=== PATIENT | female | born 2005 | race Caucasian/White ===

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

== ENCOUNTER 2025-01-16 18:25 | Emergency (ER) | payer SELFPAY ==
[2025-01-16 18:27] VITALS: BP 115/61; PULSE 85; RESP 20; TEMP 36.6; O2SAT 95; BMI 22.9
--- NOTE | 2025-01-16 18:27 | ED.GENADULT ---
HPI - General Adult General Chief complaint: Urogenital-Female Stated complaint: discomfort pelvic area Time Seen by Provider: 01/16/25 20:24 Source: patient Mode of arrival: ambulatory Limitations: no limitations History of Present Illness ED Provider: Dr. Diaz HPI narrative: This is a 19-year-old female presented hospital today for 4 days of lower pelvic pain. Patient stated that is itchy in nature she is having some ?cottage cheese ?discharged from the vaginal area. Denies any lateralized pelvic pain. Patient is sexually active does not use protection. No signs of vaginal bleeding. She kindly refuses syphilis and HIV testing. Related Data Previous Rx's ?Medication ?Instructions ?Recorded cephalexin 500 mg capsule 500 mg PO Q8H 7 days #21 caps 01/16/25 clotrimazole 2 % vaginal cream 1 appful vaginal BEDTIME 3 days 01/16/25 #21 grams doxycycline hyclate 100 mg capsule 100 mg PO BID 7 days #14 caps 01/16/25 Allergies Allergy/AdvReac Type Severity Reaction Status Date / Time No Known Allergies Allergy Verified 01/16/25 18:29 Review of Systems Review of Systems: Pertinent review of systems as mentioned in HPI. All other system otherwise negative. FOR[facility]LY [facility], [facility] Past Medical History [facility], [facility] Narrative: Medical history as mentioned in HPI Social History Social History Alcohol intake: current Alcohol intake frequency: holidays/special occasions only Smoked in Last 30 Days: Yes Substance Use Type: Marijuana Substance Use Frequency: Daily Advance Directives: No Advance Directives Information Provided: No Do you have a plan to hurt others: No Plan Physical Exam ED Exam Exam: General: Pleasant, no distress, interacting appropriately Head: Normacephalic, atraumatic ENT: oral mucosa moist, neck supple, no tracheal deviation : Cervix does not appear to be erythematous on exam, there is some white thick discharge in the vaginal vault. Neurological: Awake and alert, no facial droop noted Skin: Warm and dry Psychiatric: Appropriate mood and thoughts Vital Signs: Vital Signs - 24 hr 01/16/25 18:27 Temperature 98 F Pulse Rate 85 Respiratory Rate 20 Blood Pressure 115/61 Pulse Oximetry 95 Oxygen Delivery Method Room Air BMI result Body Mass Index 22.9 Course Course Course Narrative: This is a rapid medical exam performed by Vanda Florez NP: Additional HPI, ROS, PE not included below will be deferred to primary provider. Patient is a 19-year-old female presenting with complaint of vaginal irritation, using OTC cream which is not helping. Denies recent intercourse but has engaged in oral sex. Reports cottage cheese discharge. Plan: UA to start Medications Administered Discontinued Medications Generic Name Dose Route Start Last Admin Trade Name Jan PRN Reason Stop Dose Admin Ceftriaxone Sodium 500 mg/ 0 mg 01/16/25 20:49 01/16/25 22:14 Lidocaine HCl 1 ml IM 01/16/25 20:50 500 kit ONCE ONE Administration Doxycycline Monohydrate 100 mg 01/16/25 20:49 01/16/25 22:13 Doxycycline Monohydrate 100 Mg Capsule PO 01/16/25 20:50 100 mg ONCE ONE Administration Fluconazole 150 mg 01/16/25 20:50 01/16/25 22:14 Fluconazole 150 Mg Tablet PO 01/16/25 20:51 150 mg ONCE ONE Administration Lidocaine HCl 1 appl 01/16/25 21:52 01/16/25 22:38 Lidocaine Hcl 2 % Jelly 6 Ml Jel.Pf.[place] TOPICAL 01/16/25 21:53 1 appl ONCE ONE Administration Protocol Medical Decision Making Medical Decision Making MDM Narrative: 19 Year old female presented hospital today for evaluation of vaginal discharge and pelvic pain for past 4 days. We will plan to perform a pelvic exam on the patient. We will send off a wet prep for the patient. Urine will be sent for GC chlamydia testing. Patient does not want syphilis or HIV testing. IM ceftriaxone will be given the patient we will plan to give patient a dose of Diflucan p.o.. We will also plan to give patient a dose of doxycycline here. Patient is complaining of pruritus in the vaginal vault. On exam it does appear to be thick white discharge. I suspect this is vaginal yeast infection. Patient will get a dose of Diflucan here we will discharge patient with a vaginal clotrimazole to take. We will plan to treat patient for possible UTI as her urine did show signs of UTI. Keflex will be prescribed. Doxycycline will be sent off as well. For STD coverage. Discussed with the patient that lab will not be available in next couple of days we will plan to give her referral for primary care doctor. Differential Diagnosis Differential Diagnoses: The differential diagnosis associated with the presentation includes Yeast infection, gonorrhea, chlamydia, pelvic inflammatory disease Lab Data Labs: Lab Results 01/16/25 01/16/25 Range/Units 20:50 20:51 Urine Color Yellow Urine Appearance Clear Urine pH 6.5 (5.0-9.0) Ur Specific [place] <= 1.005 (1.005-1.025) Urine Protein Negative (Neg-Trace) mg/dL Urine Glucose (UA) Negative (Negative) mg/dL Urine Ketones Negative (Negative) mg/dL Urine Blood Negative (Negative) Urine Nitrite Negative (Negative) Ur Leukocyte Esterase Moderate (2+) H (Negative) Urine RBC 0-2 (0-2) /HPF Urine WBC 0-5 (0-5) /HPF Ur Squamous Epith Cells 3-5 (0-2) /HPF Urine Bacteria 1+ (None Seen) Hyaline Casts 0-2 (0-2) /LPF Urine Test NEGATIVE (NEGATIVE) Prescription Management I considered prescription management with: Antibiotic Discharge Plan Discharge Clinical Impression: Vaginal yeast infection Patient Disposition: Home, Self-Care Instructions: Yeast Infection (ED) Prescriptions: New doxycycline hyclate 100 mg capsule 100 mg PO BID 7 Days Qty: 14 0RF cephalexin 500 mg capsule 500 mg PO Q8H 7 Days Qty: 21 0RF clotrimazole 2 % cream 1 appful vaginal BEDTIME 3 Days Qty: 21 0RF Referrals: [facility] [Provider Group, Internal Medicine] Print Language: Portuguese
[2025-01-16 21:04] LABS: Appearance Urine Clear; Glucose Urine UA Negative (Negative); PH 6.5 (5.0-9.0); Specific Gravity - Urine <= 1.005 (1.005-1.025); UMIC TRIGGER UACC YES
[2025-01-16 21:06] LABS: UPreg QC Valid YES
[2025-01-16 21:15] LABS: UACC Culture Trigger YES
[2025-01-16] MEDS: cefTRIAXone sodium 500 MG, Lidocaine HCl 1 % MPF 1 ML IM (22:14)
[2025-01-16] MEDS: LIDOCAINE HCL 2% 1 APPL TOPICAL (22:38)
[2025-01-16 23:42] VITALS: BP 115/61; PULSE 85; RESP 20; TEMP 36.6; O2SAT 95
[2025-01-17 04:33] LABS: Bacterial Vaginosis PCR NEGATIVE (Negative); Candida Group PCR DETECTED (Not Detect); Candida glab krusei PCR NOT DETECTED (Not Detect); Trichomonas vaginalis PCR NOT DETECTED (Not Detect)
[2025-01-17 05:11] LABS: CT PCR Urine NOT DETECTED (Not Detect.); NG PCR Urine NOT DETECTED (Not Detect.)
== END 2025-01-16 23:18 | disposition home or self-care (01) ==
PROVIDERS: Registered Nurse Emergency; Emergency Provider Student in an Organized Health Care Education/Training Program
DX: B37.9 Candidiasis, unspecified (principal); R10.2 Pelvic and perineal pain
CPT/HCPCS: 81001; 81025; 81515; 87086; 87491; 87591; 96372; 99284; J0696; J2003

== ENCOUNTER 2025-02-06 17:12 | Emergency (ER) | payer MEDICAID, SELFPAY ==
[2025-02-06 17:35] VITALS: BP 134/72; PULSE 73; RESP 16; TEMP 36.6; O2SAT 100; BMI 22.7
--- NOTE | 2025-02-06 17:35 | ED.GENADULT ---
HPI - General Adult General Chief complaint: Urogenital-Female Stated complaint: personal Time Seen by Provider: 02/06/25 22:16 Source: patient Mode of arrival: ambulatory Limitations: no limitations History of Present Illness ED Provider: HPI narrative: Patient is a 19-year-old woman, representing for vaginal itching and whitish discharge, she states she was seen here at the end of December was given antibiotics however was not consistent with them, no concern for STI, here with partner, no nausea or vomiting no fevers or chills no vaginal bleeding. She states she did not have any concerns for STI but antibiotics prophylactically for gonorrhea and chlamydia as well as clotrimazole but as she mentioned she was not consistent with those. Related Data Previous Rx's ?Medication ?Instructions ?Recorded cephalexin 500 mg capsule 500 mg PO Q8H 7 days #21 caps 01/16/25 clotrimazole 2 % vaginal cream 1 appful vaginal BEDTIME 3 days 01/16/25 #21 grams doxycycline hyclate 100 mg capsule 100 mg PO BID 7 days #14 caps 01/16/25 fluconazole 150 mg tablet 150 mg PO Q3D 2 doses #2 tabs 02/06/25 Allergies Allergy/AdvReac Type Severity Reaction Status Date / Time No Known Allergies Allergy Verified 02/06/25 17:37 Review of Systems Constitutional: Constitutional: Reports as per HPI [facility] Social History Social History Alcohol intake: current Alcohol intake frequency: holidays/special occasions only Substance Use Type: Marijuana Advance Directives: No Advance Directives Information Provided: Yes Physical Exam ED Vital Signs: Vital Signs - 24 hr 02/06/25 17:35 Temperature 97.9 F Pulse Rate 73 Respiratory Rate 16 Blood Pressure 134/72 Pulse Oximetry 100 Oxygen Delivery Method Room Air BMI result Body Mass Index 22.7 Course Course Course Narrative: This is a Rapid Medical Examination (RME) performed by Edwin Molina PA-C in triage. Full HPI, ROS, assessment and treatment plan per primary provider in the Main ED. Hx: Patient is a 19 yo F who presents for ongoing symptoms consistent with a yeast infection. States that she was seen here on 01/16 treated prophylactically for gonorrhea, chlamydia, and yeast. she did not complete any medications given at discharge. Continues to endorse pain, irritation, itching, and abnormal discharge. Plan:further eval Medical Decision Making Medical Decision Making [facility] Narrative: 10:39 PM 02/06/2025 (Dr. August Forrester): Well-appearing woman presenting with continued report of whitish vaginal discharge, I reviewed her prior antibiotic coverage, she was given doxycycline and cephalexin for presumed STI and clotrimazole that she did not finish, she did test positive for candidiasis during her last visit, I will plan to treat with fluconazole, we will add on that was not done, she other states she is not a diabetic, this is not a recurrent issue for her but when this started she was not consistent with the treatment, and she has no other constitutional symptoms to suspect a sending infection such as tubo-ovarian abscess Differential Diagnosis Differential Diagnoses: The differential diagnosis associated with the presentation includes (BV, candidiasis, STI, , tubo-ovarian abscess, UTI) Lab Data [facility] Lab Attestation statement: I reviewed the patient's lab results. Labs: Lab Results 02/06/25 Range/Units 18:34 Urine Color Yellow Urine Appearance Clear Urine pH 7.5 (5.0-9.0) Ur Specific [place] <= 1.005 (1.005-1.025) Urine Protein Negative (Neg-Trace) mg/dL Urine Glucose (UA) Negative (Negative) mg/dL Urine Ketones Negative (Negative) mg/dL Urine Blood Negative (Negative) Urine Nitrite Negative (Negative) Ur Leukocyte Esterase Negative (Negative) Discharge Plan Discharge Clinical Impression: Vaginal yeast infection Patient Disposition: Home, Self-Care Instructions: Yeast Infection (ED) Additional Instructions: Take fluconazole 150 mg x 1, wait 72 hours and take another pill, during your last visit you were prescribed clotrimazole 2% cream if you still have some you can apply over the vaginal area before bedtime for the next 3 days along with fluconazole. Urinalysis was negative for infection Urine was sent for gonorrhea and chlamydia if it comes back positive will get a phone call During your last visit you did test positive for yeast infection Spiking fevers, flank pain/upper back pain, nausea, vomiting any other concerns come back to the ER Prescriptions: New fluconazole 150 mg tablet 150 mg PO Q3D Qty: 2 0RF No Action doxycycline hyclate 100 mg capsule 100 mg PO BID 7 Days Qty: 14 0RF cephalexin 500 mg capsule 500 mg PO Q8H 7 Days Qty: 21 0RF clotrimazole 2 % cream 1 appful vaginal BEDTIME 3 Days Qty: 21 0RF Print Language: Tongan
[2025-02-06 19:02] LABS: Appearance Urine Clear; Glucose Urine UA Negative (Negative); PH 7.5 (5.0-9.0); Specific Gravity - Urine <= 1.005 (1.005-1.025)
--- NOTE | 2025-02-06 23:06 | PC.NURSE ---
This Rn only reviewed discharge instruction with
[2025-02-06 23:08] VITALS: BP 125/70; PULSE 68; RESP 20; TEMP 36.7
[2025-02-06 23:10] VITALS: BP 125/70; PULSE 68; RESP 20; TEMP 36.7
[2025-02-07 04:44] LABS: CT PCR Urine NOT DETECTED (Not Detect.); NG PCR Urine NOT DETECTED (Not Detect.)
== END 2025-02-06 23:10 | disposition home or self-care (01) ==
PROVIDERS: Physician Assistant Medical; Emergency Provider Emergency Medicine
DX: B37.31 Acute candidiasis of vulva and vagina (principal); Z79.899 Other long term (current) drug therapy
CPT/HCPCS: 81003; 87491; 87591; 99283